=== PATIENT | male | born 1955 | race American Indian/Alaskan Native ===

== ENCOUNTER 2018-09-03 07:11 | Emergency (ER) | payer MEDICARE, OTHER ==
[2018-09-03 07:30] VITALS: BP 149/82
== END 2018-09-03 08:40 | disposition left against medical advice (07) ==
LOC: ED 07:11
DX: R51 Headache (principal); Z53.21 Procedure and treatment not carried out due to patient leaving prior to being seen by health care provider

== ENCOUNTER 2018-09-07 19:41 | Emergency (ER) | payer MEDICARE ==
[2018-09-07 20:32] VITALS: BP 152/73
== END 2018-09-08 01:09 | disposition left against medical advice (07) ==
LOC: ED 19:41
DX: M79.604 Pain in right leg (principal); Z53.21 Procedure and treatment not carried out due to patient leaving prior to being seen by health care provider